=== PATIENT | female | born 1985 | race Caucasian/White ===

== ENCOUNTER 2017-02-11 10:15 | Emergency (ER) | payer OTHER ==
[~2017-02-11 10:15] MED LIST: ALBUTEROL17 GM INH; FLAGYL PO; NAPROSYN500 MG PO; PHENERGAN25 MG PO; ZYRTEC10 M1 PO
== END 2017-02-11 10:55 | disposition home or self-care (01) ==
LOC: SED 10:15
DX: S80.861A Insect bite (nonvenomous), right lower leg, initial encounter (principal); L03.113 Cellulitis of right upper limb; L23.7 Allergic contact dermatitis due to plants, except food; R21 Rash and other nonspecific skin eruption; R03.0 Elevated blood-pressure reading, without diagnosis of hypertension; J45.909 Unspecified asthma, uncomplicated; Z98.890 Other specified postprocedural states; Z87.891 Personal history of nicotine dependence; Z79.899 Other long term (current) drug therapy; W57.XXXA Bitten or stung by nonvenomous insect and other nonvenomous arthropods, initial encounter
CPT/HCPCS: 99282